=== PATIENT | male | born 1985 | race Caucasian/White ===

== ENCOUNTER → 2018-08-21 | Outpatient (CLI) | payer OTHER ==
--- NOTE | 2018-08-23 15:44 | REP ---
MRI right knee without contrast: History: Right knee pain. History of injury. Patient felt a pop. Comparison MR and radiographic imaging of the right knee is retrieved from September 15, 2016 and July 17, 2018. Technique: Axial, coronal, and sagittal imaging planes are utilized. T1, proton density and T2-weighted scans were included with and without fat saturation. MRI findings: There is a 1 cm area of marrow edema in the posterior lateral tibial plateau which is a new finding. Cortical and medullary bone signal intensity are otherwise normal. There is a small quantity of joint fluid. A tiny slit-like Garcia's cyst is seen in the posteromedial popliteal soft tissues. This is unchanged. Medial and lateral patellar retinacular structures are intact. Patellar and quadriceps tendons are intact. There is mild thickening and subtle increased signal intensity in the proximal half of the patellar tendon consistent with patellar tendonitis. Slightly more prominent than previously. Anterior and posterior cruciate ligaments have an intact appearance. There is no evidence of medial or lateral collateral ligamentous disruption. No medial or lateral meniscal tear is seen. There is a focal partial-thickness defect in the articular cartilage of the posterior aspect of the lateral tibial plateau overlying the area of marrow edema consistent with an articular cartilage injury or focal chondromalacia. This is best displayed on sagittal inversion-recovery T2-weighted sequence. Coronal inversion recovery sequence demonstrates this articular cartilage lesion as well. No other articular cartilaginous defect is seen. Impression: There is evidence of a partial thickness articular cartilage lesion in the posterior aspect of the lateral tibial plateau with underlying marrow edema. A small quantity of joint fluid and a tiny slit-like Garcia's cyst is seen. No other evidence of internal derangement is seen. There is thickening and subtle increased signal intensity in the patellar tendon consistent with patellar tendinopathy. Electronically Signed by Tim Grimaldo MD 08/23/2018 04:35 P
== END ==
LOC: M RAD 07:30
DX: M71.21 Synovial cyst of popliteal space [Baker], right knee (principal); M25.461 Effusion, right knee